=== PATIENT | female | born 1965 | race Caucasian/White ===

== ENCOUNTER 2018-07-12 09:44 | Outpatient (CLI) | payer BC ==
[2018-07-12 10:34] LABS: #Eosinphils 0.1 thou/uL (0.0-0.7); #Lymphocytes 1.8 thou/uL (1.20-3.40); #Monocytes 0.5 thou/uL (0.11-0.59); #Neutrophils 3.7 thou/uL (1.40-6.50); %Basophils 0.8 % (0.0-1.0); %Eosinophils 1.3 % (0.0-10.0); %Lymphocytes 29.8 % (21.0-51.0); %Neutrophils 60.1 % (42.0-75.0); Hemoglobin 13.1 g/dL (12.0-16.0); Mean Corpuscular HGB CONC 32.6 g/dL (32.0-36.0); Mean Corpuscular Hemoglobin 29.7 pg (27.0-31.0); Mean Corpuscular Volume 91.2 fL (78.0-98.0); Mean Platelet Volume 7.4 fL (7.4-10.4); Platelet Count 272 thou/uL (130-400); RBC Distribution Width 11.7 % (11.5-14.5); Red Blood Cell (RBC) Count 4.42 mill/uL (4.20-5.40); White Blood Cell (WBC) Count 6.2 thou/uL (4.8-10.8)
[2018-07-12 10:53] LABS: Anion Gap 15 mmol/L (10-20); BUN (Urea Nitrogen) 13 mg/dL (9.8-20.1); Calc. Creatinine Clearance 0 mL/min (70-130); Calcium 9.6 mg/dL (7.8-10.44); Carbon Dioxide 25 mmol/L (22-29); Chloride 107 mmol/L (98-107); Estimated GFR-MDRD 75; Glucose 98 mg/dL (70-105); Potassium 4.8 mmol/L (3.5-5.1); Sodium 142 mmol/L (136-145)
--- NOTE | 2018-07-18 14:26 | EKG ---
Test Reason : Blood Pressure : / mmHG Vent. Rate : 060 BPM Atrial Rate : 060 BPM P-R Int : 172 ms QRS Dur : 088 ms QT Int : 424 ms P-R-T Axes : 060 022 022 degrees QTc Int : 424 ms Normal sinus rhythm Normal ECG When compared with ECG of 21-APR-2016 11:25, No significant change was found Confirmed by JULIA JOHNSON (2) on 07/18/2018 2:25:29 PM Referred By: LALA Confirmed By:JULIA JOHNSON
== END 2018-07-12 09:45 | disposition home or self-care (01) ==
LOC: LABBT 09:44
PROVIDERS: ATTEND Orthopaedic Surgery
DX: Z01.818 Encounter for other preprocedural examination (principal)
CPT/HCPCS: 80048; 85025; 93005; 93010

== ENCOUNTER 2018-07-16 06:02 | Day surgery (SDC) | payer BC ==
[2018-07-12 09:50] VITALS: BMI 33.7
[2018-07-16] MEDS ORDERED: Fentanyl 100 MCG/2 ML VIAL ONE (06:38)
[2018-07-16] MEDS ORDERED: Midazolam HCl 2 mg/2 ml Vial ONE (06:38)
[2018-07-16] MEDS ORDERED: Bupivacaine/Epinephrine 0.25% 30 ML VIAL ONE (06:42)
[2018-07-16] MEDS ORDERED: Scopolamine 1.5 mg/72 hour Patch ONE (07:07)
[2018-07-16] MEDS ORDERED: CEFAZOLIN/Water 2 GM/20 ML SYRINGE ONE (07:07)
[2018-07-16] MEDS ORDERED: Ondansetron HCl/PF 4 MG/2 ML Vial IVP PRN (07:47)
[2018-07-16] MEDS ORDERED: Promethazine HCl 25 MG/ML VIAL IM PRN (07:47)
[2018-07-16] MEDS ORDERED: Ropivacaine 0.2% 550 ML 550 ML NERVE BLCK SCH (07:47)
[2018-07-16] MEDS ORDERED: traMADol HCl 50 MG TAB PO PRN ×2 (07:47)
[2018-07-16] MEDS ORDERED: HYDROcodone/Acetaminophen 5/325 mg Tablet PO PRN ×2 (07:47)
[2018-07-16] MEDS ORDERED: Ketorolac Tromethamine 30 MG/ML VIAL IVP PRN (07:47)
[2018-07-16] MEDS ORDERED: Zolpidem Tartrate 5 MG TAB PO PRN (07:47)
[2018-07-16] MEDS ORDERED: Fentanyl 100 MCG/2 ML VIAL IV PRN (07:48)
[2018-07-16] MEDS ORDERED: SUGAMMADEX SODIUM 500 MG/5 ML VIAL ONE (08:56)
--- NOTE | 2018-07-16 09:15 | OP ---
DATE OF PROCEDURE: 07/16/2018 PREOPERATIVE DIAGNOSIS: Left shoulder impingement, possible rotator cuff tear, and biceps instability and pain. POSTOPERATIVE DIAGNOSIS: Left shoulder impingement, biceps tendon instability and pain. PROCEDURE: Left shoulder arthroscopy with Subacromial decompression and open biceps tenodesis SURGEON: Denzel Longo M.D. JEWELRY ENAMELER: Joel Gore PA-C. BLOOD LOSS: Minimal. ANESTHESIA: The patient had general anesthetic as well as a block. IMPLANTS: An [employer] BioComposite Bio-Tenodesis screw. She went to recovery room in stable condition. INDICATIONS: Ms. Dejesus is a 52-year-old female, patient of mine, who 14 years ago I did a left shoulder surgery on her and removed her distal clavicle, and at this time, she has continued to have problems in that same shoulder despite injections and therapy. At this time, she opted for surgery. TECHNIQUE: After all appropriate consent forms were explained and signed, she was taken back to the operating room, and at this time, was given general anesthetic. Once the level of anesthesia was appropriate, she was rolled into the right lateral decubitus position with all bony prominences well-padded. Axilla was placed underneath the right axilla. Aaron bag was inflated to hold in this position. The arm was taken through full range of motion. The arm was then suspended with 10 pounds in standard fashion. The left shoulder and upper extremity were prepped and draped in the standard surgical fashion. Bony anatomic landmarks were drawn out and subacromial space was infiltrated with Marcaine with epinephrine. Posterior portal was established and the scope was placed into the shoulder joint. Anterior working portal was made using a needle -localization technique. Diagnostic arthroscopy commenced. The articular surface of the humeral head and glenoid were pristine. The superior labrum was degenerative. The biceps tendon itself appeared to be flattened and hard. There was a copious amount of scar tissue circumferentially around the biceps, especially as it entered the bicipital groove as it left the shoulder. The rotator cuff looked intact; posterior to this, subscap was in good condition. No loose bodies were noted in the axillary pouch. Remaining labrum was in good condition. At this time, a green cannula was placed anteriorly, and an 18- gauge needle was used to place a suture through the biceps tendon. Biceps was cut off the labral insertion with a pair of scissors, and at this time, we debrided this area smooth. We then removed the scope and replaced it in the subacromial space. Lateral working portal was made. Shaver was introduced to remove the scar off the underlying cuff. The cuff was found to be intact. We did remove the soft tissue off the acromion and a small anterior-inferior subacromial spur was taken down using the shaver. Once this had been done, again we thoroughly evaluated the cuff throughout and found it to be intact. At this time, we then removed the scope and drained the shoulder. We then made an incision with a 15-blade down through the skin. The Bovie was used to coagulate any brisk venous bleeding. The deltoid fascia was opened sharply and finger dissection was used to dissect down through the deltoid to the underlying transverse humeral ligament in the bicipital groove. This was opened up, and the biceps tendon was pulled out into the wound. It was sewn in standard fashion. The interarticular portion was removed, and at this time, the pin was placed. The drill was used to ream to a depth of 25 and a BioComposite 7 x 23 Bio-Tenodesis screw was placed in standard fashion. Sutures were tied over top of this, and at this time, we thoroughly irrigated and dried our wound. We allowed our deltoid to close upon this. Running Vicryl was used to close our deltoid fascia, 2-0 Vicryl and sutures were then used to close this incision as well as our portals. Bulky sterile dressing was applied. The patient was then awakened and taken to the recovery room in stable condition. All counts were correct at the end of the case. She received preoperative IV antibiotics. MELYSSA
== END 2018-07-16 11:00 | disposition home or self-care (01) ==
LOC: SDC 06:02
PROVIDERS: ATTEND Orthopaedic Surgery
PROC: 0LS20ZZ Reposition Left Shoulder Tendon, Open Approach (ICD-10-PCS; principal; 2018-07-16)
PROC: 0RBK4ZZ Excision of Left Shoulder Joint, Percutaneous Endoscopic Approach (ICD-10-PCS; principal; 2018-07-16)
DX: M75.42 Impingement syndrome of left shoulder (principal); M25.312 Other instability, left shoulder; M25.512 Pain in left shoulder; I10 Essential (primary) hypertension; E07.9 Disorder of thyroid, unspecified; Z79.899 Other long term (current) drug therapy; Z91.048 Other nonmedicinal substance allergy status
CPT/HCPCS: A4306; C1713; J2250; J2795; J3010

== ENCOUNTER 2025-10-23 08:58 | Outpatient (CLI) | payer OTHER | END 2025-10-23 08:59 | disposition home or self-care (01) | LOC: SCSMRI 08:58 | PROVIDERS: ATTEND Orthopaedic Surgery | DX: M47.26 Other spondylosis with radiculopathy, lumbar region (principal); M51.16 Intervertebral disc disorders with radiculopathy, lumbar region; M48.061 Spinal stenosis, lumbar region without neurogenic claudication; M47.25 Other spondylosis with radiculopathy, thoracolumbar region; M51.17 Intervertebral disc disorders with radiculopathy, lumbosacral region; M47.27 Other spondylosis with radiculopathy, lumbosacral region; M48.07 Spinal stenosis, lumbosacral region | CPT/HCPCS: 72148 ==